=== PATIENT | male | born 2000 | race Caucasian/White ===

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

== ENCOUNTER 2021-12-28 08:10 | Emergency (ER) | payer MEDICAID, OTHER ==
[~2021-12-28] VITALS: Ht 165.1 cm; Wt 63.0 kg
[2021-12-28] MEDS ORDERED: LIDOcaine 1% W/epiNEPHrine 1:100,000 20ml vial SQ ONE (08:20)
[2021-12-28] MEDS ORDERED: morphine 4 MG/ML inj SYRINge IV ONE (08:30)
[2021-12-28] MEDS ORDERED: morphine 10mg/ml inj. IV ONE (08:40)
[2021-12-28] MEDS ORDERED: ondansetron/PF 4mg/2ml inj IM ONE (08:40)
[2021-12-28] MEDS ORDERED: ceFAZolin/D5W- 1GM premix 50 ML IV STA (09:23)
[2021-12-28] MEDS ORDERED: TETanus/Pertussis (Acell)/Diphther VAC/PF (Tdap-Adult) 0.5ml syringe IMVAC ONE (09:25)
[2021-12-28] MEDS ORDERED: NAPR-56 PO (09:35)
[2021-12-28] MEDS ORDERED: CEPH500C81 PO (09:35)
[2021-12-28 10:00] VITALS: BP 132/64
== END 2021-12-28 10:41 | disposition home or self-care (01) ==
LOC: ER 08:11
DX: S51.812A Laceration without foreign body of left forearm, initial encounter (principal); F12.90 Cannabis use, unspecified, uncomplicated; X58.XXXA Exposure to other specified factors, initial encounter; Y93.89 Activity, other specified; Y92.89 Other specified places as the place of occurrence of the external cause; Y99.8 Other external cause status
CPT/HCPCS: 12034; 90471; 90715; 96365; 96372; 96375; 96376; 99284; J0690; J2270; J2274; J2405; J3490; L3908; A6258

== ENCOUNTER 2022-01-05 11:07 | Emergency (ER) | payer OTHER ==
[~2022-01-05] VITALS: Ht 167.6 cm; Wt 59.1 kg
[~2022-01-05 11:07] MED LIST: CEPH500C81 PO; NAPR-56 PO
[2022-01-05 11:15] VITALS: BP 126/74
[2022-01-05] MEDS ORDERED: SULF1TAB49 PO (11:34)
[2022-01-05] MEDS ORDERED: LIDOcaine 1% W/epiNEPHrine 1:100,000 20ml vial SQ ONE (11:40)
--- NOTE | 2022-01-05 11:53 | NUR ---
PT SEEN FOR WOUND DEHISCENCE. PT EDUCATED ON ABX PRESCRIBED.
== END 2022-01-05 12:14 | disposition home or self-care (01) ==
LOC: ER 11:08
DX: Z48.01 Encounter for change or removal of surgical wound dressing (principal); T81.31XD Disruption of external operation (surgical) wound, not elsewhere classified, subsequent encounter; F12.90 Cannabis use, unspecified, uncomplicated
CPT/HCPCS: 12020; 99283